=== PATIENT | male | born 1965 | race Caucasian/White ===

== ENCOUNTER → 2019-01-15 | Outpatient (CLI) | payer BC ==
[~2019-01-15] MED LIST: HYDROCODON-ACE1 EAC7 PO
--- NOTE | 2019-01-17 10:27 | TST ---
[place] [address] [facility] STRESS TEST Name: LEVI ALEJANDRO Room: [facility]#: [id number] Admission: 01/15/19 Attend Phys: Jeff Uriostegui Discharge: Date of : 65 Date of Service: 01/15/19 1700 Report #: [id number] THIS REPORT FOR: //name// CC: Jeff Uriostegui DO DATE OF SERVICE: 01/15/2019 TYPE OF PROCEDURE: Exercise stress test using a Kris protocol. The patient underwent exercise stress testing using a Kris protocol from a pretest heart rate of 62, blood pressure 110/80. The patient was able to exercise for 9 minutes achieving a peak heart rate of 156, which was greater than 90% of maximum predicted heart rate for the patient's age. Peak blood pressure was 240/90. In recovery, the patient had heart rate of 98, blood pressure 134/94. The patient denied chest pain and exercise was terminated because of elevated blood pressure and achieving target heart rate. The patient's resting ECG showed a normal sinus rhythm with nonspecific T-wave changes. With exercise there were no arrhythmias noted. There were no ischemic ST-segment changes noted with exercise. IMPRESSION: 1. Resting ECG abnormality. 2. Adequate exercise tolerance. 3. No chest pain with exercise. 4. No ischemic ST-segment changes are noted with exercise. 5. Negative exercise stress test for myocardial ischemia. 6. Low-risk exercise stress test for predicting future cardiac events. <ELECTRONICALLY SIGNED> By: Lauri Sellers MD, FACC 01/17/19 1027 1700 2318 Lauri Sellers MD, FACC /nt
== END ==
LOC: M.CRD 14:21
DX: E29.1 Testicular hypofunction (principal)